=== PATIENT | male | born 1950 | race Caucasian/White ===

== ENCOUNTER 2016-12-24 16:55 | Emergency (ER) | payer MEDICARE, OTHER ==
[~2016-12-24 16:55] MED LIST: *UNABLE1; ALKA-SELTZER H1 EACH PO; APRES25 PO; ASA5GR PO; ASAB PO; AUG875 PO; B12250T PO; BISR PR; CAT1 PO; CENTRUM PO; COREG3 PO; COZ25; CREON24000 UNT PO; CRESTOR40 MG PO; CYANO1000T PO; FLAG500TAB PO; FLOMAX4 PO; FLUCON1 PO; GLUCAGEN IM; GLUCOPHAGE1000 MG PO; GLUCOSE GEL PO; GLUCOTRO10 PO; GLUCPH PO; HALF81 PO; HCTZ12.5 PO; HUMULIN R1 ML SC; IMDUR30 PO; INSNOVR SC; KLOR-CON M2020 MEQ PO; L20 PO; L40 PO; LEVAQUIN750 MG PO; LEVEMFLXPN SC; LEVEMIR SC; LIPITOR40 PO; LISINOPRIL PO; LISINOPRIL RX PO; LOFIBRA160 MG PO; LOP25 PO; LOP50 PO; MAGOX4 PO; METOPROLOL 25MG PO; MEVACOR40 MG PO; MULTIPLE VIT PO; MULTIVIT/MIN PO; MULTIVITAMI1 PO; NEPHRO PO; NITROSTAT0.4 MG SL; NORCO1 TAB PO; NORV10 PO; NORV5 PO; NOVOLOG SC; NYSTATPOW TOP; OXYCONTIN15 MG PO; PERCOCET1 TA4 PO; PLAVIX PO; PRIN10 PO; PRIN20 PO; PROTONIX PO; RAN500 PO; REG PO; RENAL SFTGLS1 MG PO; T PO; TOPXL25 PO; TRICOR145 PO; VITAMIN D31000 UNIT PO; ZESTRIL20 MG PO; ZOCOR40 PO
[2017-01-07] MEDS ORDERED: HUMALOGPEN SC (10:01)
[2017-03-28] MEDS ORDERED: IMDUR30 PO (16:25)
[2017-03-28] MEDS ORDERED: KLOR-CON M2020 MEQ PO (16:26)
[2017-03-28] MEDS ORDERED: L20 PO (16:26)
[2017-03-28] MEDS ORDERED: COREG3 PO (16:26)
[2017-03-28] MEDS ORDERED: RAN500 PO (16:27)
[2017-03-28] MEDS ORDERED: FERROUS SULF325 M1 PO (16:29)
== END 2016-12-24 17:55 | disposition home or self-care (01) ==
LOC: ER 16:55
DX: T85.598A Other mechanical complication of other gastrointestinal prosthetic devices, implants and grafts, initial encounter (principal); Z87.891 Personal history of nicotine dependence; I25.2 Old myocardial infarction; D64.9 Anemia, unspecified; E11.22 Type 2 diabetes mellitus with diabetic chronic kidney disease; F41.9 Anxiety disorder, unspecified; I12.9 Hypertensive chronic kidney disease with stage 1 through stage 4 chronic kidney disease, or unspecified chronic kidney disease; N18.9 Chronic kidney disease, unspecified; I48.91 Unspecified atrial fibrillation; E78.5 Hyperlipidemia, unspecified; K21.9 Gastro-esophageal reflux disease without esophagitis; Z88.5 Allergy status to narcotic agent; Z79.899 Other long term (current) drug therapy; Z79.82 Long term (current) use of aspirin; Z79.4 Long term (current) use of insulin; Z95.1 Presence of aortocoronary bypass graft
CPT/HCPCS: 99283